=== PATIENT | male | born 1980 | race African-American/Black ===

== ENCOUNTER 2018-10-24 18:30 | Emergency (ER) | payer MEDICAID ==
[~2018-10-24] VITALS: Ht 177.8 cm; Wt 86.4 kg
[2018-10-24] MEDS ORDERED: IBUPROFEN 800 MG TABLET ONE (19:57)
[2018-10-24] MEDS ORDERED: IBUPROFEN 800 MG TABLET PO ONE (20:00)
[2018-10-24] MEDS ORDERED: HYDROCODONE/ACETAMINOPHEN 5-325 MG TABLET PO ONE (20:00)
[2018-10-24 21:06] VITALS: BP 139/90
== END 2018-10-24 21:49 | disposition home or self-care (01) ==
LOC: EMS 18:31
DX: S93.402A Sprain of unspecified ligament of left ankle, initial encounter (principal); R03.0 Elevated blood-pressure reading, without diagnosis of hypertension; X50.1XXA Overexertion from prolonged static or awkward postures, initial encounter; Y93.67 Activity, basketball; Y92.89 Other specified places as the place of occurrence of the external cause; Y99.8 Other external cause status
CPT/HCPCS: 29515; 96372